=== PATIENT | male | born 1930 | race Caucasian/White ===

== ENCOUNTER 2017-09-29 18:12 | Emergency (ER) | payer OTHER ==
[~2017-09-29] VITALS: Ht 177.8 cm; Wt 73.5 kg
--- NOTE | 2017-09-29 18:22 | NUR ---
AAOX2 BIBRA 102 from home c/o worsening generalized malaise since this AM, hypotensive prior to arrival, 500ml NS given in the field, new BP post IVF 103/48. RR is even and unlabored with nad noted. Skin is warm and non diaphoretic. Assisted to hospital gown, placed on the monitor. Awaiting MD for eval. IVAMADEO R hand 18g noted [employer].
[2017-09-29] MEDS ORDERED: VANCOMYCIN 1 GM in IV D5W 250 ML IV ONE (18:30)
[2017-09-29] MEDS ORDERED: PIPERACILLIN /TAZOBACTAM 3.375 G in IV D5W 50 ML IV ONE (18:30)
[2017-09-29 18:41] LABS: BASOPHILS # (AUTO) 0.1 /CMM (0.0-0.2); BASOPHILS % (AUTO) 1.9 % (0.0-2.0); EOSINOPHILS % (AUTO) 0.2 % (0.0-6.0); HEMATOCRIT 28 % (39-51); HEMOGLOBIN 9.5 g/dL (13.5-17.5); LYMPHOCYTES # (AUTO) 0.4 /CMM (0.8-4.8); LYMPHOCYTES % (AUTO) 6.5 % (20.0-44.0); MEAN CORPUSCULAR HEMOGLOBIN 35 PG (26.0-33.0); MEAN CORPUSCULAR HGB CONC 34 g/dl (31.0-36.0); MEAN CORPUSCULAR VOLUME 104 fL (80-96); MONOCYTES # (AUTO) 0.6 /CMM (0.1-1.30); MONOCYTES % (AUTO) 8.3 % (2.0-12.0); NEUTROPHILS # (AUTO) 5.6 /CMM (1.8-8.9); NEUTROPHILS % (AUTO) 83.1 % (43.0-81.0); PLATELET COUNT (AUTO) 102 /CMM (150-450); RDW COEFFICIENT OF VARIATION 13.7 (11.5-15.0); RED BLOOD CELL COUNT(AUTO) 2.71 MIL/uL (4.5-6.0); WHITE BLOOD COUNT (AUTO) 6.7 K/uL (4.3-11.0)
[2017-09-29 18:48] LABS: APPEARANCE,URINE Clear (CLEAR); BILIRUBIN,URINE SMALL (NEGATIVE); BLOOD, URINE Trace-lysed Ery/uL (NEGATIVE); COLOR,URINE Yellow (YELLOW); KETONES,URINE Negative (NEGATIVE); LEUKOCYTE ESTERASE ,URINE Negative (NEGATIVE); NITRITE, URINE Negative (NEGATIVE); PH,URINE 5.5 (5.0-8.0); PROTEIN,URINE 30 mg/dl (NEGATIVE); UGLUCOSE Negative (NEGATIVE)
[2017-09-29 18:50] LABS: CALCIUM, SERUM 8.3 mg/dL (8.5-10.1); CARBON DIOXIDE 26 mmol/L (21-32); CHLORIDE 99 mmol/L (98-107); CREATININE 1.1 mg/dL (0.6-1.3); GLUCOSE 175 mg/dL (74-106); POTASSIUM 3.5 mmol/L (3.5-5.1); SODIUM SERUM 133 mmol/L (136-145); UREA NITROGEN, BLOOD 34 mg/dL (7-18)
[2017-09-29 18:56] LABS: ALANINE AMINOTRANSFERASE 39 U/L (12-78); ALBUMIN 2.7 g/dL (3.4-5.0); ALKALINE PHOSPHATASE 105 U/L (46-116); ASPARTATE AMINOTRANSFERASE 37 U/L (15-37); BILIRUBIN,DIRECT 0.4 mg/dL (0.0-0.2); BILIRUBIN,TOTAL 0.7 mg/dL (0.2-1.0); TOTAL PROTEIN, SERUM 6.6 g/dL (6.4-8.2)
[2017-09-29] MEDS ORDERED: IV NS 0.9% 1,000 ML BAG IV ONE (19:00)
[2017-09-29 19:01] LABS: BACTERIA,URINE Rare /HPF (None Seen); MUCUS,URINE Few /LPF (None Seen); RBC,URINE 2-3/HPF /HPF (0-2); SQUAMOUS EPITHELIAL CELL,UR Few /HPF (None Seen); URINE AMORPHOUS URATE Few /HPF (None Seen); WBC,URINE 0-2 /HPF (0-3)
--- NOTE | 2017-09-29 19:02 | NUR ---
[facility]
--- NOTE | 2017-09-29 19:05 | NUR ---
RECEIVED REPORT FROM ELYSIA HILL FOR KOFI.
--- NOTE | 2017-09-29 19:56 | NUR ---
[facility]
[2017-09-29] MEDS ORDERED: ACETAMINOPHEN 325 MG TABLET PO ONE (20:30)
[2017-09-29 20:33] LABS: INR 2.67 (0.85-1.15)
[2017-09-29] MEDS ORDERED: ACETAMINOPHEN 325 MG TABLET ONE (20:39)
--- NOTE | 2017-09-29 21:46 | NUR ---
[facility] [phone] md [facility] transport PRN 45min eta
[2017-09-29] MEDS ORDERED: IBUPROFEN 600 MG TABLET PO ONE ×2 (21:48→22:00)
--- NOTE | 2017-09-29 22:27 | NUR ---
REPORT GIVEN TO [facility] ED CHARGE NURSE PAVITHRA FOR KOFI.
[2017-09-29 23:00] VITALS: BP 97/59
--- NOTE | 2017-09-29 23:10 | NUR ---
REPORT GIVEN TO [facility] CREW FOR KOFI. Patient Tranfers to outside Facility Physician:SHAHAB Location:[facility]
--- NOTE | 2017-09-30 09:26 | NUR ---
PRELIMINARY BLOOD CULTURE RESULT SENT BY FAX TO PATEL NAIDU AT [phone] FOR KOFI
== END 2017-09-29 23:21 | disposition short-term general hospital (02) ==
LOC: ER 18:21
DX: L03.116 Cellulitis of left lower limb (principal); F03.90 Unspecified dementia, unspecified severity, without behavioral disturbance, psychotic disturbance, mood disturbance, and anxiety; I48.91 Unspecified atrial fibrillation; Z95.0 Presence of cardiac pacemaker
CPT/HCPCS: 36415; 73590; 73620; 80048; 80076; 81001; 83605; 85025; 85610; 87040 ×2; 87077; 87086; 87186; 96365; 96366; 96368; 99285; A4606; J2543; J3370; J7030; J7040; J7060 ×2; Z7610; 81000-TC